=== PATIENT | female | born 1955 | race African-American/Black ===

== ENCOUNTER 2025-01-28 05:52 | Emergency (ER) | payer OTHER ==
[~2025-01-28] VITALS: Ht 167.6 cm; Wt 69.9 kg
[2025-01-28 05:52] VITALS: BP 124/54
[2025-01-28] MEDS ORDERED: ONDANSETRON 4 MG/2 ML VIAL ONE (06:11)
[2025-01-28] MEDS: IV NORMAL SALINE 500 ML BAG IV ONE (06:18)
[2025-01-28] MEDS: ONDANSETRON 4 MG/2 ML VIAL IV ONE (06:18)
[2025-01-28 06:21] LABS: PLATELET COUNT (AUTO) 150 K/uL (179-408); RED BLOOD CELL COUNT(AUTO) 4.61 MIL/uL (3.63-4.92); RED CELL DISTRIBUTION WIDTH 13.2 % (12.3-17.7); WHITE BLOOD COUNT (AUTO) 7.6 K/uL (3.8-11.8)
[2025-01-28] MEDS ORDERED: OMEP40CA21 PO (06:22)
[2025-01-28] MEDS ORDERED: ANAS1TAB50 PO (06:22)
[2025-01-28] MEDS ORDERED: LEVO112T2 PO (06:22)
[2025-01-28] MEDS ORDERED: AMLO-140 PO (06:22)
[2025-01-28 06:28] LABS: CREATININE 0.8 mg/dL (0.6-1.3); SODIUM SERUM 143 mmol/L (136-145); UREA NITROGEN, BLOOD 7 mg/dL (7-18)
[2025-01-28 06:34] LABS: ASPARTATE AMINOTRANSFERASE 13 U/L (15-37); TOTAL PROTEIN, SERUM 7.4 g/dL (6.4-8.2)
[2025-01-28] MEDS ORDERED: IOHEXOL 300MG/ML 100 ML INFUS..BTL ONE (06:44)
[2025-01-28 07:32] LABS: *BILIRUBIN,URIN NEGATIVE (NEGATIVE); *BLOOD, URINE NEGATIVE (NEGATIVE); *CLARITY,URINE CLEAR (CLEAR); *COLOR,URINE YELLOW (YELLOW); *KETONES,URINE NEGATIVE (NEGATIVE); *PROTEIN,URINE NEGATIVE (NEGATIVE); *UROBILINOGEN,URINE 0.2 E.U./dl (NORMAL); LEUKOCYTE ESTERASE ,URINE NEGATIVE (NEGATIVE); NITRITE, URINE NEGATIVE (NEGATIVE); UGLUCOSE NEGATIVE (NEGATIVE)
[2025-01-28] MEDS ORDERED: FAMOTIDINE. 20 MG/2 ML VIAL IV ONE (08:01)
[2025-01-28] MEDS: FAMOTIDINE. 20 MG/2 ML VIAL IV ONE (08:02)
[2025-01-28] MEDS ORDERED: PANT20TA2 PO (09:05)
[2025-01-28] MEDS ORDERED: METO-295 PO (09:05)
[2025-01-28 09:16] VITALS: BP 125/61; O2SAT 97
== END 2025-01-28 09:18 | disposition home or self-care (01) ==
LOC: ER 05:52
DX: R10.13 Epigastric pain (principal); R55 Syncope and collapse; Z88.0 Allergy status to penicillin; Z90.49 Acquired absence of other specified parts of digestive tract
CPT/HCPCS: 99284; 74177; 96374; 71045; 96361; 96375; 80076; 80048; 81003; 83690; 85025; 84484 ×2; 36415; 93005; J1308; J2405; Q9967; J7040; A4606; A4663